=== PATIENT | male | born 1930 | race Caucasian/White ===

== ENCOUNTER 2017-11-11 12:55 | Observation (INO) ==
[2017-11-11] MEDS ORDERED: Sodium Chlor 0.9% Inj 500 ML IV.SIG SCH (14:00)
--- NOTE | 2017-11-11 14:00 | XR ---
EXAM DATE: 11/11/2017 1:56 PM EDT AGE/SEX: 87 years / Male INDICATIONS: Palpitations. CLINICAL DATA: This is the patient's initial encounter. Patient reports that signs and symptoms have been present for 1 day and indicates a pain score of 0/10. MEDICAL/SURGICAL HISTORY: None. None. COMPARISON: No prior exams available for comparison. FINDINGS: There is linear atelectasis or scarring at the bases with elevation of the right hemidiaphragm. Cardi omegaly. Dual-lead pacer from a right subclavian transvenous approach noted. Blunting of the right la teral costophrenic angle. CONCLUSION: Basilar scarring or atelectasis with mild elevation of the right hemidiaphragm. Small right effusion not excluded. Electronically signed by: Roman Mcgrath MD 11/11/2017 1:59 PM EDT
[2017-11-11 14:07] LABS: Baso # (Auto) 0.1 th/mm3 (0.0-0.2); Baso % (Auto) 1.1 % (0.0-2.0); Eos # (Auto) 0.3 th/mm3 (0.0-0.4); Eos % (Auto) 3.5 % (0.0-4.0); Hematocrit 41.3 % (39.0-51.0); Hemoglobin 13.9 gm/dL (13.0-17.0); Lymph # (Auto) 0.9 th/mm3 (1.0-4.8); Lymph % (Auto) 11.8 % (9.0-44.0); Mean Corpuscular HGB Conc 33.7 % (32.0-36.0); Mean Corpuscular Hemoglobin 30.8 pg (27.0-34.0); Mean Corpuscular Volume 91.3 fL (80.0-100.0); Mean Platelet Volume 8.1 fL (7.0-11.0); Mono # (Auto) 0.8 th/mm3 (0.0-0.9); Mono % (Auto) 11.1 % (0.0-8.0); Neut # (Auto) 5.4 th/mm3 (1.8-7.7); Neut % (Auto) 72.5 % (16.0-70.0); Platelet Count 214 th/mm3 (150-450); Red Blood Count 4.52 mil/mm3 (4.50-5.90); Red Cell Distribution Width 15.5 % (11.6-17.2); White Blood Count 7.5 th/mm3 (4.0-11.0)
[2017-11-11 14:17] LABS: Anion Gap 7 meq/L (5-15); Blood Urea Nitrogen 19 mg/dL (7-18); Calcium 8.5 mg/dL (8.5-10.1); Chloride 108 meq/L (98-107); Glomerular Filtration Rate 42 mL/min (>89); Glucose,Random 87 mg/dL (74-106); Sodium 143 meq/L (136-145)
[2017-11-11 14:27] LABS: INR 1.2 Ratio; Prothrombin Time 11.7 sec (9.8-11.6)
[2017-11-11 15:27] LABS: Bilirubin,Urine Negative (Negative); Clarity,Urine Hazy (Clear); Color,Urine Amber (Yellw/Straw); Glucose,Urine (UA) Negative (Negative); Hyaline Casts,Urine 1 /lpf (0-3); Leukocyte Esterase,Urine Negative (Negative); Mucus,Urine Few /lpf (Occasional); Nitrite,Urine Negative (Negative); Specific Gravity,Urine 1.013 (1.002-1.035)
--- NOTE | 2017-11-11 15:55 | CT ---
EXAM DATE: 11/11/2017 3:48 PM EDT AGE/SEX: 87 years / Male INDICATIONS: Dizziness today. CLINICAL DATA: This is the patient's initial encounter. Patient reports that signs and symptoms have been present for 1 day and indicates a pain score of 0/10. MEDICAL/SURGICAL HISTORY: None. None. RADIATION DOSE: 45.41 CTDI (mGy) COMPARISON: No prior exams available for comparison. TECHNIQUE: CT of the head without contrast. Using automated exposure control and adjustment of the mA and/or kV according to patient size, radiation dose was kept as low as reasonably achievable to ob tain optimal diagnostic quality images. DICOM format image data is available electronically for revi ew and comparison. FINDINGS: There is no evidence for intracranial hemorrhage, mass effect, mass lesions, edema, or extra-axial fl uid collections. The visualized bony structures appear intact. The ventricles are normal size for t he patient's age. There are no signs of acute infarction for technique. CONCLUSION: Unremarkable study. . Electronically signed by: Jan Johnson MD 11/11/2017 3:54 PM EDT
--- NOTE | 2017-11-11 17:50 | P.HPIM ---
History of Present Illness Primary Care Physician: Emiliano Gallego Chief Complaint: dyspnea on exertion History of Present Illness: This is an 87-year-old male with history of atrial fibrillation, status post pacemaker placement, diabetes mellitus, and COPD presenting with dyspnea on exertion. Per patient, he has been in his usual state of health until 2 days ago when he started having severe dyspnea, described as shortness of breath when he is walking associated with lightheadedness and dizziness. He denies any chest pain, palpitations, fever, chills, headache, syncope or cough. His publicity manager is Dr. Dhaliwal. Review of Systems Patient denies smoking, significant alcohol intake or use of any illicit drugs. [facility] - History History Provided By: Patient - Medical History Medical History: Medical History (Last Updated 11/11/17 @ 18:12 by Kavitha Cortez MD) Afib CKD (chronic kidney disease) COPD (chronic obstructive pulmonary disease) Diabetes Pacemaker - Surgical History Surgical History: Surgical History (Last Updated 11/11/17 @ 17:49 by Kavitha Cortez MD) S/P cholecystectomy S/P herniorrhaphy S/P lobectomy of lung S/P placement of cardiac pacemaker - Tobacco History Second Hand Smoke Exposure: No Tobacco Use In Past 30 Days: No Smoking Status: Never smoker - Alcohol History How Often Do You Have a Drink Containing Alcohol: 2 to 4 times a month - Substance Use History Substance History: Past History - Substance Use Type Alcohol Status: Sustained Remission Route Used: By Mouth Frequency: previous abuse Reason for Use: Feels Good - Travel History Recent Travel in the [place] Within the Last 8 Weeks: No Recent Travel Out of the Country Within the Last 8 Weeks: No - Immunization History Tetanus Immunization: Unsure Hx Influenza Vaccine This Season: No Medications and Allergies Active Medications: Active Medications Sodium Chloride (Ns Inj) 500 mls @ 0 mls/hr IV.SIG BOLUS NAWAF Allergies Allergy/AdvReac Type Severity Reaction Status Date / Time No Known Allergies Allergy Verified 11/11/17 13:16 Exam Vital signs: Vital Signs 11/11/17 12:58 11/11/17 13:01 11/11/17 14:51 Temperature 97.7 F Pulse Rate 50 L 49 L 49 L Respiratory Rate 24 18 18 Blood Pressure 106/68 138/89 138/83 Pulse Oximetry 100 99 98 11/11/17 15:58 Temperature Pulse Rate 57 L Respiratory Rate 18 Blood Pressure 113/63 Pulse Oximetry 100 Intake & Output 11/10/17 11/11/17 11/11/17 18:59 06:59 18:59 Weight 79.832 kg Narrative: Not in distress, well-nourished, looks stated age PERRL, pink conjunctiva without injection, anicteric Nose without bleeding, airway patent, oropharynx clear Supple neck, no masses or thyromegaly, trachea midline Bradycardic, regular rhythm, no murmurs. Decreased breath sounds especially in the left, no crackles or wheezing. Normal bowel sounds, soft, non-tender, nondistended, no guarding. Extremities without clubbing, cyanosis, or edema. No rash of generalized distribution. Skin is warm and dry. AAO x3, no cranial nerve deficits, moves all 4 extremities, no focal neurologic deficits Results - Labs CBC & Chem 7: 11/11/17 13:22 11/11/17 13:22 Labs: Short CBC 11/11/17 Range/Units 13:22 WBC 7.5 (4.0-11.0) th/mm3 Hgb 13.9 (13.0-17.0) gm/dL Hct 41.3 (39.0-51.0) % Plt Count 214 (150-450) th/mm3 BMP 11/11/17 13:22 Sodium 143 Potassium 4.0 Chloride 108 H Carbon Dioxide 28.0 BUN 19 H Creatinine 1.56 H Calcium 8.5 Cardiac Enzymes 11/11/17 Range/Units 13:22 Troponin I Less than 0.02 L (0.02-0.05) ng/mL Urine 11/11/17 Range/Units 14:29 Urine Color Rachel (Yellw/Straw) Urine Clarity Hazy H (Clear) Urine pH 7.0 (5.0-8.5) Ur Specific [place] 1.013 (1.002-1.035) Urine Protein Negative (Neg-Trace) mg/dL Urine Glucose (UA) Negative (Negative) mg/dL - Imaging Impressions Chest X-Ray 11/11/17 13:16 CONCLUSION: Basilar scarring or atelectasis with mild elevation of the right hemidiaphragm. Small right effusion not excluded. Head CT 11/11/17 13:16 CONCLUSION: Unremarkable study. . Caprini VTE Risk Assessment Caprini VTE Risk Assessment: Moderate/High Risk (score >= 2) Caprini Risk Assessment Model: Point Value = 1 Point Value = 2 Point Value = 3 Point Value = 5 Age 41-60 Minor surgery BMI > 25 kg/m2 Swollen legs Varicose veins or History of unexplained or recurrent spontaneous Oral contraceptives or hormone replacement Sepsis (< 1 month) Serious lung disease, including pneumonia (< 1 month) Abnormal pulmonary function Acute myocardial infarction Congestive heart failure (< 1 month) History of inflammatory bowel disease Medical patient at bed rest Age 61-74 Arthroscopic surgery Major open surgery (> 45 min) Laparoscopic surgery (> 45 min) Malignancy Confined to bed (> 72 hours) Immobilizing plaster cast Central venous access Age >= 75 History of VTE Family history of VTE Factor V Leiden Prothrombin [id number] Lupus anticoagulant Anticardiolipin antibodies Elevated serum homocysteine Heparin-induced thrombocytopenia Other congenital or acquired thrombophilia Stroke (< 1 month) Elective arthroplasty Hip, pelvis, or leg fracture Acute spinal cord injury (< 1 month) Prophylaxis Regimen: Total Risk Factor Score Risk Level Prophylaxis Regimen 0-1 Low Early ambulation 2 Moderate Order ONE of the following: *Sequential Compression Device (SCD) *Heparin 5000 units SQ BID 3-4 Higher Order ONE of the following medications: *Heparin 5000 units SQ TID *Enoxaparin/Lovenox 40 mg SQ daily (WT < 150 kg, CrCl > 30 mL/min) *Enoxaparin/Lovenox 30 mg SQ daily (WT < 150 kg, CrCl > 10-29 mL/min) *Enoxaparin/Lovenox 30 mg SQ BID (WT < 150 kg, CrCl > 30 mL/min) AND/OR *Sequential Compression Device (SCD) 5 or more Highest Order ONE of the following medications: *Heparin 5000 units SQ TID (Preferred with Epidurals) *Enoxaparin/Lovenox 40 mg SQ daily (WT < 150 kg, CrCl > 30 mL/min) *Enoxaparin/Lovenox 30 mg SQ daily (WT < 150 kg, CrCl > 10-29 mL/min) *Enoxaparin/Lovenox 30 mg SQ BID (WT < 150 kg, CrCl > 30 mL/min) AND *Sequential Compression Device (SCD) Assessment and Plan - Plan This is an 87-year-old male with history of atrial fibrillation, diabetes mellitus and COPD presenting with dyspnea on exertion associated with lightheadedness Left pleural effusion likely secondary to congestive heart failure - could be causing patient's dyspnea on exertion, chest x-ray shows atelectasis versus scarring, rule out small right pleural effusion. Start Lasix, monitor BMP, check echocardiogram, consult Dr. Dhaliwal, motor urine output. Initial trop is negative, check BMP. Serial troponin, start telemetry. Sinus bradycardia-EKG showed a ventricularly paced rhythm, could be pacemaker malfunction, consult cardiology as above. Avoid negative chronotropic agents. Chronic kidney disease-unknown stage, creatinine 1.56, monitor. Check BMP tomorrow. COPD-not in exacerbation, duo nebs as needed Home medications not yet reconciled, nursing to reconcile. DVT prophylaxis: Heparin Discussed with son, he will procure patient's medication list and bring to the hospital.
--- NOTE | 2017-11-11 18:06 | ED ---
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 Per patient he has had this for about 2 days now. Patient is never had a dizziness but he does state that he has the shortness of breath on occasion. He does have a history of COPD, atrial fibrillation and CHF. Per patient uses inhalers. Per patient he feels also that his pacemaker might be acting up on his left chest. Per patient is been going on for almost 2 weeks. Patient denies any chest pain however. He denies any abdominal pain. Nausea or vomiting. No urinary or bowel movement issues. No numbness, drooling, weakness. No fevers chills or sweats. No injuries or traumas. Per patient he follows with Dr. Dhaliwal for cardiology. Discomfort the patient feels is 1 out of 10 on the left side and feels more like a muscle ache. Related Data Home Medications Medication Instructions Recorded Confirmed aspirin [Lydia Chewable Aspirin] 81 mg 11/11/17 bisoprolol fumarate 2.5 mg PO DAILY 11/11/17 11/11/17 finasteride 5 mg PO DAILY 11/11/17 11/11/17 flecainide 150 mg PO Q12H 11/11/17 11/11/17 levothyroxine 75 mcg PO DAILY 11/11/17 11/11/17 linagliptin [Tradjenta] 5 mg PO DAILY 11/11/17 11/11/17 Allergies Allergy/AdvReac Type Severity Reaction Status Date / Time No Known Allergies Allergy Verified 11/11/17 13:16 Review of Systems ROS: all other systems reviewed are negative [facility] Medical History Medical History Afib (Acute) CKD (chronic kidney disease) (Acute) COPD (chronic obstructive pulmonary disease) (Acute) Diabetes (Acute) Pacemaker (Acute) Surgical History Surgical History S/P cholecystectomy (Acute) S/P herniorrhaphy (Acute) S/P lobectomy of lung (Acute) S/P placement of cardiac pacemaker (Acute) Social History Social History Substance History: No History of Abuse Second Hand Smoke Exposure: No Smoking Status: Former smoker How Often Do You Have a Drink Containing Alcohol: 4 or more times a week Recent Travel in [facility] within the Last 8 Weeks: No Recent Out of Country Travel within the Last 8 Weeks: No Substance Abuse Detail Alcohol: Substance Use Status: Sustained Remission Route Used Substance Abuse: By Mouth Substance Frequency: previous abuse Reason for Use: Feels Good Immunization History Tetanus Immunization: Unsure Hx Influenza Vaccine This Season: No Exam Narrative Exam Narrative: GENERAL: Well appearing. SKIN: Focused skin assessment warm/dry. HEAD: Atraumatic. Normocephalic. EYES: Pupils equal and round. No scleral icterus. No injection or drainage. ENT: No nasal bleeding or discharge. Mucous membranes pink and moist. Tongue is midline. No uvula deviation. NECK: Trachea midline. No JVD. CARDIOVASCULAR: Regular rate and rhythm. No murmur appreciated. RESPIRATORY: No accessory muscle use. Clear to auscultation. Breath sounds equal bilaterally. GASTROINTESTINAL: Abdomen soft, non-tender, nondistended. Hepatic and splenic margins not palpable. MUSCULOSKELETAL: No obvious deformities. No clubbing. No cyanosis. No edema. Full range of motion of the upper and lower extremities bilaterally. 2+ pulses bilaterally. NEUROLOGICAL: Awake and alert. No obvious cranial nerve deficits. Motor grossly within normal limits. Normal speech. PSYCHIATRIC: Appropriate mood and affect; insight and judgment normal. Course Initial Documented Vital Signs Temperature 97.7 F 11/11/17 12:58 Pulse Rate 50 L 11/11/17 12:58 Respiratory Rate 24 11/11/17 12:58 Blood Pressure 106/68 11/11/17 12:58 Pulse Oximetry 100 11/11/17 12:58 Last Documented Vital Signs Temperature 97.6 F 11/12/17 11:37 Pulse Rate 52 L 11/12/17 11:37 Respiratory Rate 14 11/12/17 11:37 Blood Pressure 121/70 11/12/17 11:37 Pulse Oximetry 99 11/12/17 11:37 Medical Decision Making ELFEGO Attestation ELFEGO supervised visit: Yes Attestation: Patient seen and examined by me Dr. Harper in addition to Janay Diane PAC. Patient does have exertional dyspnea and probable moderate CHF limitations but very little fluid retention. Son is very worried about patient has very limited mobility. Offered admission. Patient reluctant son very concerned. Ultimately patient agreeable. MDM Narrative Medical decision making narrative: 87-year-old male presents to the ED for evaluation of shortness of breath with exertion and dizziness. Patient was properly examined and was found to have signs and symptoms of unclear etiology. Labs and imaging were ordered. Labs and imaging show what appears to be pleural effusion on the right side. flux - [employer] rep came and evaluated the pacemaker. His pacemaker had an episode of A. fib 3 weeks ago but no shot was done. Patient has not had any episodes since. Patient and son are concerned because he is starting to get more short of breath and dizzy with exertion. His orthostats were slightly positive. Patient was given meclizine with minimal relief. Patient does feel very dizzy when standing. Not a safe discharge. Cannot rule out ACS or more significant CHF. Recommendation is for admission. My attending Dr. Harper evaluated the patient himself and agrees with plan. Patient will be admitted to Dr. Cortez who agrees to admission. Family and patient agree with this. Medical Screen Exam Complete: Yes Emergency Medical Condition: Yes Differential Diagnosis Differential Diagnosis: ACS versus CHF exacerbation versus dyspnea on exertion versus COPD exacerbation versus chest pain versus atypical chest pain Medical Records Medical records reviewed: Yes I reviewed the patient's medical records. Lab Data Lab results reviewed: Yes I reviewed the patient's lab results. Lab results narrative: Troponin negative. Coags within normal limits. Result diagrams: 11/12/17 01:38 11/12/17 01:38 Lab Results 11/11/17 11/11/17 11/11/17 Range/Units 13:22 13:22 13:22 WBC 7.5 (4.0-11.0) th/mm3 RBC 4.52 (4.50-5.90) mil/mm3 Hgb 13.9 (13.0-17.0) gm/dL Hct 41.3 (39.0-51.0) % MCV 91.3 (80.0-100.0) fL MCH 30.8 (27.0-34.0) pg MCHC 33.7 (32.0-36.0) % RDW 15.5 (11.6-17.2) % Plt Count 214 (150-450) th/mm3 MPV 8.1 (7.0-11.0) fL Neut % (Auto) 72.5 H (16.0-70.0) % Lymph % (Auto) 11.8 (9.0-44.0) % Branch % (Auto) 11.1 H (0.0-8.0) % Eos % (Auto) 3.5 (0.0-4.0) % Baso % (Auto) 1.1 (0.0-2.0) % Neut # (Auto) 5.4 (1.8-7.7) th/mm3 Lymph # (Auto) 0.9 L (1.0-4.8) th/mm3 Branch # (Auto) 0.8 (0.0-0.9) th/mm3 Eos # (Auto) 0.3 (0.0-0.4) th/mm3 Baso # (Auto) 0.1 (0.0-0.2) th/mm3 WBC Differential . Differential Comment Auto diff final PT 11.7 H (9.8-11.6) sec INR 1.2 Ratio Sodium 143 (136-145) meq/L Potassium 4.0 (3.5-5.1) meq/L Chloride 108 H (98-107) meq/L Carbon Dioxide 28.0 (21.0-32.0) meq/L Anion Gap 7 (5-15) meq/L BUN 19 H (7-18) mg/dL Creatinine 1.56 H (0.60-1.30) mg/dL Estimated GFR 42 L (>89) mL/min POC Glucose (68-110) mg/dl Random Glucose 87 (74-106) mg/dL Calcium 8.5 (8.5-10.1) mg/dL Total Creatine Kinase (39-308) U/L Troponin I Less than 0.02 L (0.02-0.05) ng/mL B-Natriuretic Peptide (0-100) pg/mL Urine Color (Yellw/Straw) Urine Clarity (Clear) Urine pH (5.0-8.5) Ur Specific [place] (1.002-1.035) Urine Protein (Neg-Trace) mg/dL Urine Glucose (UA) (Negative) mg/dL Urine Ketones (Negative) mg/dL Urine Occult Blood (Negative) Urine Nitrate (Negative) Urine Bilirubin (Negative) Urine Urobilinogen (Less than 2) mg/dL Ur Leukocyte Esterase (Negative) Hyaline Casts (0-3) /lpf Urine Mucus (Occasional) /lpf Micro UA Comment Ur Microscopic Review Urine Culture Comments 11/11/17 11/11/17 11/11/17 Range/Units 13:32 14:29 19:44 WBC (4.0-11.0) th/mm3 RBC (4.50-5.90) mil/mm3 Hgb (13.0-17.0) gm/dL Hct (39.0-51.0) % MCV (80.0-100.0) fL MCH (27.0-34.0) pg MCHC (32.0-36.0) % RDW (11.6-17.2) % Plt Count (150-450) th/mm3 MPV (7.0-11.0) fL Neut % (Auto) (16.0-70.0) % Lymph % (Auto) (9.0-44.0) % Branch % (Auto) (0.0-8.0) % Eos % (Auto) (0.0-4.0) % Baso % (Auto) (0.0-2.0) % Neut # (Auto) (1.8-7.7) th/mm3 Lymph # (Auto) (1.0-4.8) th/mm3 Branch # (Auto) (0.0-0.9) th/mm3 Eos # (Auto) (0.0-0.4) th/mm3 Baso # (Auto) (0.0-0.2) th/mm3 WBC Differential Differential Comment PT (9.8-11.6) sec INR Ratio Sodium (136-145) meq/L Potassium (3.5-5.1) meq/L Chloride (98-107) meq/L Carbon Dioxide (21.0-32.0) meq/L Anion Gap (5-15) meq/L BUN (7-18) mg/dL Creatinine (0.60-1.30) mg/dL Estimated GFR (>89) mL/min POC Glucose (68-110) mg/dl Random Glucose (74-106) mg/dL Calcium (8.5-10.1) mg/dL Total Creatine Kinase 39 (39-308) U/L Troponin I Less than 0.02 L (0.02-0.05) ng/mL B-Natriuretic Peptide 495 H (0-100) pg/mL Urine Color Rachel (Yellw/Straw) Urine Clarity Hazy H (Clear) Urine pH 7.0 (5.0-8.5) Ur Specific [place] 1.013 (1.002-1.035) Urine Protein Negative (Neg-Trace) mg/dL Urine Glucose (UA) Negative (Negative) mg/dL Urine Ketones Negative (Negative) mg/dL Urine Occult Blood Negative (Negative) Urine Nitrate Negative (Negative) Urine Bilirubin Negative (Negative) Urine Urobilinogen Less than 2 (Less than 2) mg/dL Ur Leukocyte Esterase Negative (Negative) Hyaline Casts 1 (0-3) /lpf Urine Mucus Few H (Occasional) /lpf Micro UA Comment Culture not ind Ur Microscopic Review Not Reportable Urine Culture Comments Culture not ind 11/11/17 11/12/17 11/12/17 Range/Units 21:10 01:38 01:38 WBC 6.2 (4.0-11.0) th/mm3 RBC 4.18 L (4.50-5.90) mil/mm3 Hgb 12.8 L (13.0-17.0) gm/dL Hct 37.7 L (39.0-51.0) % MCV 90.1 (80.0-100.0) fL MCH 30.7 (27.0-34.0) pg MCHC 34.0 (32.0-36.0) % RDW 15.5 (11.6-17.2) % Plt Count 197 (150-450) th/mm3 MPV 7.7 (7.0-11.0) fL Neut % (Auto) 66.7 (16.0-70.0) % Lymph % (Auto) 13.0 (9.0-44.0) % Branch % (Auto) 13.0 H (0.0-8.0) % Eos % (Auto) 5.3 H (0.0-4.0) % Baso % (Auto) 2.0 (0.0-2.0) % Neut # (Auto) 4.2 (1.8-7.7) th/mm3 Lymph # (Auto) 0.8 L (1.0-4.8) th/mm3 Branch # (Auto) 0.8 (0.0-0.9) th/mm3 Eos # (Auto) 0.3 (0.0-0.4) th/mm3 Baso # (Auto) 0.1 (0.0-0.2) th/mm3 WBC Differential . Differential Comment Auto diff final PT (9.8-11.6) sec INR Ratio Sodium 146 H (136-145) meq/L Potassium 3.4 L (3.5-5.1) meq/L Chloride 107 (98-107) meq/L Carbon Dioxide 32.4 H (21.0-32.0) meq/L Anion Gap 7 (5-15) meq/L BUN 19 H (7-18) mg/dL Creatinine 1.79 H (0.60-1.30) mg/dL Estimated GFR 36 L (>89) mL/min POC Glucose 149 H (68-110) mg/dl Random Glucose 98 (74-106) mg/dL Calcium 7.8 L (8.5-10.1) mg/dL Total Creatine Kinase 29 L (39-308) U/L Troponin I Less than 0.02 L (0.02-0.05) ng/mL B-Natriuretic Peptide (0-100) pg/mL Urine Color (Yellw/Straw) Urine Clarity (Clear) Urine pH (5.0-8.5) Ur Specific [place] (1.002-1.035) Urine Protein (Neg-Trace) mg/dL Urine Glucose (UA) (Negative) mg/dL Urine Ketones (Negative) mg/dL Urine Occult Blood (Negative) Urine Nitrate (Negative) Urine Bilirubin (Negative) Urine Urobilinogen (Less than 2) mg/dL Ur Leukocyte Esterase (Negative) Hyaline Casts (0-3) /lpf Urine Mucus (Occasional) /lpf Micro UA Comment Ur Microscopic Review Urine Culture Comments 11/12/17 11/12/17 Range/Units 08:22 11:43 WBC (4.0-11.0) th/mm3 RBC (4.50-5.90) mil/mm3 Hgb (13.0-17.0) gm/dL Hct (39.0-51.0) % MCV (80.0-100.0) fL MCH (27.0-34.0) pg MCHC (32.0-36.0) % RDW (11.6-17.2) % Plt Count (150-450) th/mm3 MPV (7.0-11.0) fL Neut % (Auto) (16.0-70.0) % Lymph % (Auto) (9.0-44.0) % Branch % (Auto) (0.0-8.0) % Eos % (Auto) (0.0-4.0) % Baso % (Auto) (0.0-2.0) % Neut # (Auto) (1.8-7.7) th/mm3 Lymph # (Auto) (1.0-4.8) th/mm3 Branch # (Auto) (0.0-0.9) th/mm3 Eos # (Auto) (0.0-0.4) th/mm3 Baso # (Auto) (0.0-0.2) th/mm3 WBC Differential Differential Comment PT (9.8-11.6) sec INR Ratio Sodium (136-145) meq/L Potassium (3.5-5.1) meq/L Chloride (98-107) meq/L Carbon Dioxide (21.0-32.0) meq/L Anion Gap (5-15) meq/L BUN (7-18) mg/dL Creatinine (0.60-1.30) mg/dL Estimated GFR (>89) mL/min POC Glucose 122 H 136 H (68-110) mg/dl Random Glucose (74-106) mg/dL Calcium (8.5-10.1) mg/dL Total Creatine Kinase (39-308) U/L Troponin I (0.02-0.05) ng/mL B-Natriuretic Peptide (0-100) pg/mL Urine Color (Yellw/Straw) Urine Clarity (Clear) Urine pH (5.0-8.5) Ur Specific [place] (1.002-1.035) Urine Protein (Neg-Trace) mg/dL Urine Glucose (UA) (Negative) mg/dL Urine Ketones (Negative) mg/dL Urine Occult Blood (Negative) Urine Nitrate (Negative) Urine Bilirubin (Negative) Urine Urobilinogen (Less than 2) mg/dL Ur Leukocyte Esterase (Negative) Hyaline Casts (0-3) /lpf Urine Mucus (Occasional) /lpf Micro UA Comment Ur Microscopic Review Urine Culture Comments Imaging Data Attestation: I personally reviewed and interpreted this imaging study as follows : Radiologist's impression: Chest X-Ray 11/11/17 13:16 CONCLUSION: Basilar scarring or atelectasis with mild elevation of the right hemidiaphragm. Small right effusion not excluded. Head CT 11/11/17 13:16 CONCLUSION: Unremarkable study. . ECG Data Attestation: I personally reviewed and interpreted this ECG as follows: Interpretation: EKG shows bradycardia but paced. No sign of ST elevations. No signs of ischemia read by me and attending. Discharge Plan Discharge Disposition Patient Disposition: 30 Still Patient Discharge Condition Condition: Good Discharge Order Discharge Orders: Discharge Order (Routine); Ordered 11/12/17 Ordered By: Kavitha Cortez Discharge Details Diagnosis: CHF (congestive heart failure), Exertional dyspnea Physicians Team ED Provider: Blake Harper ED Midlevel Provider: Gonzalo Diane Attending Provider: Kavitha Cortez Other Providers: Lj Shell Status ED Status: Left Department Discharge Information Discharge Date/Time: 11/11/17 20:06
[2017-11-11] MEDS ORDERED: Acetaminophen 325 MG Tablet PO PRN (18:13)
[2017-11-11] MEDS ORDERED: Dextrose 50% in Water 50 ML Vial IV.PUSH PRN (18:27)
[2017-11-11] MEDS: Heparin - SQ 10,000 UNITS/ML Vial SQ SCH (19:42)
[2017-11-11 20:25] LABS: Creatine Kinase 39 U/L (39-308)
[2017-11-11] MEDS: Insulin NovoLOG Aspart Correctional Sugar Inj SQ SCH (21:39)
[2017-11-12 01:52] LABS: Baso # (Auto) 0.1 th/mm3 (0.0-0.2); Eos # (Auto) 0.3 th/mm3 (0.0-0.4); Eos % (Auto) 5.3 % (0.0-4.0); Hematocrit 37.7 % (39.0-51.0); Hemoglobin 12.8 gm/dL (13.0-17.0); Lymph # (Auto) 0.8 th/mm3 (1.0-4.8); Mean Corpuscular Hemoglobin 30.7 pg (27.0-34.0); Mean Corpuscular Volume 90.1 fL (80.0-100.0); Mean Platelet Volume 7.7 fL (7.0-11.0); Mono # (Auto) 0.8 th/mm3 (0.0-0.9); Neut # (Auto) 4.2 th/mm3 (1.8-7.7); Neut % (Auto) 66.7 % (16.0-70.0); Platelet Count 197 th/mm3 (150-450); Red Blood Count 4.18 mil/mm3 (4.50-5.90); Red Cell Distribution Width 15.5 % (11.6-17.2); White Blood Count 6.2 th/mm3 (4.0-11.0)
[2017-11-12 02:11] LABS: Anion Gap 7 meq/L (5-15); Blood Urea Nitrogen 19 mg/dL (7-18); Calcium 7.8 mg/dL (8.5-10.1); Carbon Dioxide 32.4 meq/L (21.0-32.0); Chloride 107 meq/L (98-107); Glomerular Filtration Rate 36 mL/min (>89); Glucose,Random 98 mg/dL (74-106); Potassium 3.4 meq/L (3.5-5.1); Sodium 146 meq/L (136-145)
[2017-11-12 02:16] LABS: Creatine Kinase 29 U/L (39-308)
[2017-11-12] MEDS: Heparin - SQ 10,000 UNITS/ML Vial SQ SCH (06:39)
[2017-11-12] MEDS: Insulin NovoLOG Aspart Correctional Sugar Inj SQ SCH ×2 (08:34→13:08)
[2017-11-12 08:46] VITALS: RESP 14; TEMP 97.6
[2017-11-12] MEDS ORDERED: Levothyroxine 75 MCG Tablet PO SCH (09:00)
[2017-11-12] MEDS ORDERED: Finasteride 5 MG Tablet PO SCH (09:00)
[2017-11-12] MEDS ORDERED: Flecainide 100 MG Tablet PO SCH (09:00)
--- NOTE | 2017-11-12 09:24 | MB ---
cc: Lj Shell MD, Humayun A MD DATE: 11/12/2017 REFERRING PHYSICIAN: Dr. Kavitha Cortez. REASON FOR CONSULTATION: Shortness of breath and lightheadedness. HISTORY OF PRESENT ILLNESS: Mr. Álvarez is an 87-year-old white gentleman, well known patient of Dr. Dhaliwal's with history of paroxysmal atrial fibrillation, COPD, and hypertension, who is status post permanent pacemaker implant about a year ago. He said he was doing well up until about 2 days ago when he began having some lightheadedness and unsteadiness on his feet. He felt he might fall, but did not fall and has had no loss of consciousness. He says it was more of an unsteadiness that it was a feeling of going to pass out. He says his shortness of breath has been chronic and has really not worsened over the past few days and feels it is all secondary to his underlying COPD. He has been taking his medication as directed. He does not currently smoke. 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 He denies history of myocardial infarction, heart failure, stroke, TIA, thyroid or liver disease. He has history of lung cancer and is status post lobectomy. He did have a cardiac pacemaker placed about a year ago on the left side. He says he developed a pacemaker site infection and that required removal and is now on the right side. PAST SURGICAL HISTORY: Includes cholecystectomy, herniorrhaphy, lobectomy of the lung, permanent pacemaker implant. ALLERGIES: NONE KNOWN. MEDICATIONS: 1. Lasix 20 mg IV every 12 hours. 2. Heparin 5000 units subcutaneous every 12 hours. 3. Insulin sliding scale. 4. Albuterol. 5. DuoNebs every 4 hours. At home, he was takin. Tamsulosin 0.4 mg daily. 2. Tradjenta 5 mg p.o. daily. 3. Levothyroxine 75 mcg daily. 4. Hydrochlorothiazide 12.5 mg daily. 5. Flecainide 150 mg every 12 hours. 6. Finasteride 5 mg daily. 7. Bisoprolol fumarate 2.5 mg daily 8. Aspirin 81 mg daily. SOCIAL HISTORY: The patient was a cigarette smoker, quit about 5 or 6 years ago. He denies any significant alcohol intake or any illicit drug use. FAMILY HISTORY: Noncontributory. REVIEW OF SYSTEMS: Denies lower extremity edema or claudication. Denies any orthopnea or PND type symptoms. Denies any exertional or resting chest discomfort. Denies any bleeding or clotting disorders. Except for that mentioned in the HPI, his complete 12-point review of systems is otherwise negative. PHYSICAL EXAMINATION: GENERAL: Reveals an elderly white male lying flat in bed, comfortable, in no distress. VITAL SIGNS: Blood pressure is 126/74 mmHg, heart rate is 53 and regular, respiratory rate 17, temperature 98.2, oxygen saturation is 100% on room air. Looking back at his vitals from yesterday, he had some orthostatic vital signs taken and had some mild orthostatic changes. The worst I see recorded, although it is not documented in the EMR, I spoke with one of the nurses here in the unit, who was checking his blood pressure and said he had about 20 mm orthostatic change from supine to standing. No symptoms, but blood pressure standing was around 100. HEENT: Head is normocephalic and atraumatic. Pupils equal, round, reactive to light. Sclerae are anicteric. Extraocular movements intact. NECK: Supple. There is no adenopathy. There is no jugular venous distention at 30 degrees. Carotid upstrokes are normal. No bruits. Thyroid exam is normal. LUNGS: Decreased breath sounds bilaterally and are clear throughout. HEART: PMI is not displaced. S1, S2 are normal. There are no murmurs, gallops, clicks or rubs. Pacemaker site seen in the right subclavian area and is healed well. ABDOMEN: Benign. EXTREMITIES: No cyanosis, clubbing or edema. Perfusion is adequate. The upper and lower extremities. There are no femoral bruits. NEUROLOGIC: Nonfocal. DIAGNOSTIC IMAGING: EKG on 11/11/2017 on admission at 19:47 shows an electronic ventricular pacing capture at rate 50. EKG from this morning at 05:20 shows a sinus rhythm with first degree AV block and IVCD. Chest x-ray from yesterday at 13:16 shows basilar scarring or atelectasis with mild elevation of the right hemidiaphragm, small right effusion not excluded. LABORATORY DATA: CBC, white count 7.5, hemoglobin 13.9, platelet count 214,000. Coags are normal. Chemistries, sodium 143, potassium 4.0, BUN 19, creatinine 1.56, calcium 8.5. Troponin I has been less than 0.02 x3 sets since admission. BNP on admission yesterday was 495. IMPRESSION: 1. Episodes of lightheadedness while standing and walking, most likely related to orthostatic hypotension. 2. Paroxysmal atrial fibrillation, currently in sinus rhythm. 3. Status post permanent dual-chamber pacemaker implant, functioning normally on interrogation yesterday. 4. History of diabetes mellitus type 2. 5. Hypothyroidism on replacement. 6. Chronic obstructive pulmonary disease and history of lung cancer. RECOMMENDATIONS: The patient is stable from cardiovascular standpoint at this time. We will continue to follow his orthostatic blood pressures, but in the meantime, I have restarted his Bystolic, aspirin, and flecainide and we will leave him off tamsulosin and hydrochlorothiazide. I have discontinued his intravenous Lasix since I do not feel he is having any congestive heart failure decompensation at this point. I think if he is ambulatory and feeling better later this morning, he can probably be discharged to home with followup with Dr. Dhaliwal next week. I discussed the case in detail with the nursing staff and plans with the patient. Thank you for allowing us to participate in the care of this patient. MD MANOLO Carrasco/amy , 07:23 AM , 07:38 AM
--- NOTE | 2017-11-12 09:30 | P.PNIM ---
Subjective Interval history: Follow-up for shortness of breath, dizziness Has not walked yet, no dizziness or lightheadedness. Denies any chest pain or shortness of breath. Presently at rest. Physical Exam Vital signs: Vital Signs 11/11/17 12:58 11/11/17 13:01 11/11/17 14:51 Temperature 97.7 F Pulse Rate 50 L 49 L 49 L Respiratory Rate 24 18 18 Blood Pressure 106/68 138/89 138/83 Pulse Oximetry 100 99 98 11/11/17 15:58 11/11/17 19:01 11/11/17 20:23 Temperature 98.4 F Pulse Rate 57 L 54 L 64 Respiratory Rate 18 16 17 Blood Pressure 113/63 134/76 109/65 Pulse Oximetry 100 98 11/11/17 21:18 11/11/17 21:20 11/11/17 21:21 Temperature Pulse Rate 55 L 53 L 54 L Respiratory Rate 17 Blood Pressure 150/75 H 126/74 101/57 L Pulse Oximetry 11/11/17 23:45 11/12/17 03:35 11/12/17 08:42 Temperature 98.0 F 98.2 F 97.6 F Pulse Rate 50 L 50 L 50 L Respiratory Rate 17 16 14 Blood Pressure 109/61 104/60 106/73 Pulse Oximetry 96 96 98 Intake & Output 11/11/17 11/12/17 11/12/17 18:59 06:59 18:59 Intake Total 0 / 0 Output Total 1325 / 1325 Balance -1325 / -1325 0 / 0 Weight 79.832 kg 79 kg Intake: Oral 0 / 0 Output: Urine 1325 / 1325 Other: # Voids 1 Narrative: Not in distress, well-nourished, looks stated age PERRL, pink conjunctiva without injection, anicteric Nose without bleeding, airway patent, oropharynx clear Supple neck, no masses or thyromegaly, trachea midline Bradycardic, regular rhythm, no murmurs. Decreased breath sounds especially in the left, crackles left base. Normal bowel sounds, soft, non-tender, nondistended, no guarding. Extremities without clubbing, cyanosis, or edema. No rash of generalized distribution. Skin is warm and dry. AAO x3, no cranial nerve deficits, moves all 4 extremities, no focal neurologic deficits Results - Labs CBC & Chem 7: 09/02/18 01:38 11/12/17 01:38 Laboratory Results - last 24 hr 11/11/17 11/11/17 11/11/17 13:22 13:22 13:22 WBC 7.5 RBC 4.52 Hgb 13.9 Hct 41.3 MCV 91.3 MCH 30.8 MCHC 33.7 RDW 15.5 Plt Count 214 MPV 8.1 Neut % (Auto) 72.5 H Lymph % (Auto) 11.8 [place] % (Auto) 11.1 H Eos % (Auto) 3.5 Baso % (Auto) 1.1 Neut # (Auto) 5.4 Lymph # (Auto) 0.[address] [place] # (Auto) 0.8 Eos # (Auto) 0.3 Baso # (Auto) 0.1 WBC Differential . Differential Comment Auto diff final PT 11.7 H INR 1.2 Sodium 143 Potassium 4.0 Chloride 108 H Carbon Dioxide 28.0 Anion Gap 7 BUN 19 H Creatinine 1.56 H Estimated GFR 42 L POC Glucose Random Glucose 87 Calcium 8.5 Total Creatine Kinase Troponin I Less than 0.02 L B-Natriuretic Peptide Urine Color Urine Clarity Urine pH Ur Specific [place] Urine Protein Urine Glucose (UA) Urine Ketones Urine Occult Blood Urine Nitrate Urine Bilirubin Urine Urobilinogen Ur Leukocyte Esterase Hyaline Casts Urine Mucus Micro UA Comment Ur Microscopic Review Urine Culture Comments 11/11/17 11/11/17 11/11/17 13:32 14:29 19:44 WBC RBC Hgb Hct MCV MCH MCHC RDW Plt Count MPV Neut % (Auto) Lymph % (Auto) [place] % (Auto) Eos % (Auto) Baso % (Auto) Neut # (Auto) Lymph # (Auto) [place] # (Auto) Eos # (Auto) Baso # (Auto) WBC Differential Differential Comment PT INR Sodium Potassium Chloride Carbon Dioxide Anion Gap BUN Creatinine Estimated GFR POC Glucose Random Glucose Calcium Total Creatine Kinase 39 Troponin I Less than 0.02 L B-Natriuretic Peptide 495 H Urine Color Rachel Urine Clarity Hazy H Urine pH 7.0 Ur Specific [place] 1.013 Urine Protein Negative Urine Glucose (UA) Negative Urine Ketones Negative Urine Occult Blood Negative Urine Nitrate Negative Urine Bilirubin Negative Urine Urobilinogen Less than 2 Ur Leukocyte Esterase Negative Hyaline Casts 1 Urine Mucus Few H Micro UA Comment Culture not ind Ur Microscopic Review Not Reportable Urine Culture Comments Culture not ind 11/11/17 11/12/17 11/12/17 21:10 01:38 01:38 WBC 6.2 RBC 4.18 L Hgb 12.8 L Hct 37.7 L MCV 90.1 MCH 30.7 MCHC 34.0 RDW 15.5 Plt Count 197 MPV 7.7 Neut % (Auto) 66.7 Lymph % (Auto) 13.0 [place] % (Auto) 13.0 H Eos % (Auto) 5.3 H Baso % (Auto) 2.0 Neut # (Auto) 4.2 Lymph # (Auto) 0.[address] [place] # (Auto) 0.8 Eos # (Auto) 0.3 Baso # (Auto) 0.1 WBC Differential . Differential Comment Auto diff final PT INR Sodium 146 H Potassium 3.4 L Chloride 107 Carbon Dioxide 32.4 H Anion Gap 7 BUN 19 H Creatinine 1.79 H Estimated GFR 36 L POC Glucose 149 H Random Glucose 98 Calcium 7.8 L Total Creatine Kinase 29 L Troponin I Less than 0.02 L B-Natriuretic Peptide Urine Color Urine Clarity Urine pH Ur Specific [place] Urine Protein Urine Glucose (UA) Urine Ketones Urine Occult Blood Urine Nitrate Urine Bilirubin Urine Urobilinogen Ur Leukocyte Esterase Hyaline Casts Urine Mucus Micro UA Comment Ur Microscopic Review Urine Culture Comments 11/12/17 08:22 WBC RBC Hgb Hct MCV MCH MCHC RDW Plt Count MPV Neut % (Auto) Lymph % (Auto) [place] % (Auto) Eos % (Auto) Baso % (Auto) Neut # (Auto) Lymph # (Auto) [place] # (Auto) Eos # (Auto) Baso # (Auto) WBC Differential Differential Comment PT INR Sodium Potassium Chloride Carbon Dioxide Anion Gap BUN Creatinine Estimated GFR POC Glucose 122 H Random Glucose Calcium Total Creatine Kinase Troponin I B-Natriuretic Peptide Urine Color Urine Clarity Urine pH Ur Specific [place] Urine Protein Urine Glucose (UA) Urine Ketones Urine Occult Blood Urine Nitrate Urine Bilirubin Urine Urobilinogen Ur Leukocyte Esterase Hyaline Casts Urine Mucus Micro UA Comment Ur Microscopic Review Urine Culture Comments - Imaging Impressions Chest X-Ray 11/11/17 13:16 CONCLUSION: Basilar scarring or atelectasis with mild elevation of the right hemidiaphragm. Small right effusion not excluded. Head CT 11/11/17 13:16 CONCLUSION: Unremarkable study. . Assessment and Plan - Plan This is an 87-year-old male with history of atrial fibrillation, diabetes mellitus and COPD presenting with dyspnea on exertion associated with lightheadedness Left pleural effusion likely secondary to congestive heart failure - could be causing patient's dyspnea on exertion, BNP 495, chest x-ray shows atelectasis versus scarring, rule out small right pleural effusion. -1325 cc/24hr. troponins negative. Continue telemetry. Sinus bradycardia-EKG showed a ventricularly paced rhythm, repeat EKG showed first-degree AV block, sinus rhythm, IVCD. Per cardiology, restart Bystolic, flecainide. Orthostatic blood pressure-hold off Flomax and hydrochlorothiazide. Lasix stopped. Check orthostatic blood pressure, walk with physical therapy and check if patient gets dizzy. If he does, will need a bolus of normal saline. Chronic kidney disease-unknown stage, creatinine 1.56, monitor. Creatinine a little bit higher. Stop Lasix. Recheck BMP tomorrow, start IVF if still with lightheadedness or orthostatic blood pressure positive. COPD-not in exacerbation, duo nebs as needed DVT prophylaxis: Heparin
[2017-11-12 11:38] VITALS: BP 121/70; PULSE 52; O2SAT 99
--- NOTE | 2017-11-12 15:42 | P.EN ---
Addendum: Recommendations for anticoagulation and stroke prophylaxis for atrial fib discussed in detail with the patient. Patient declined due to concerns about bleeding and bruising with anticoagulation and wants to continue ASA. Understands increased risk of CVA. He says he has discussed this with Dr. Dhaliwal in the past as well.
--- NOTE | 2017-11-12 16:25 | ECG ---
Date Performed: 11/11/2017 Time Performed: 19:47:19 PTAGE: 87 years EKG: ELECTRONIC VENTRICULAR PACEMAKER ABNORMAL RHYTHM ECG Since PREVIOUS TRACING , no significant change noted PREVIOUS TRACIN11/11/2017 13.31 DOCTOR: Aidan Vega Interpretating Date/Time 11/12/2017 16:23:54
--- NOTE | 2017-11-12 16:25 | ECG ---
Date Performed: 11/11/2017 Time Performed: 13:31:31 PTAGE: 87 years EKG: ELECTRONIC VENTRICULAR PACEMAKER ABNORMAL RHYTHM ECG NO PREVIOUS TRACING DOCTOR: Aidan Vega Interpretating Date/Time 11/12/2017 16:23:30
--- NOTE | 2017-11-12 16:26 | ECG ---
Date Performed: 11/12/2017 Time Performed: 05:20:28 PTAGE: 87 years EKG: SINUS BRADYCARDIA WITH FIRST DEGREE AV BLOCK INTRAVENTRICULAR CONDUCTION DELAY NONSPECIFIC T-WAVE CHANGES Compared to previous tracing, previous rhythm was paced rhythm with rate of 50, this r hythm is Sinus rhythm with first degree AV block. No pacemaker activity is seen on this tracing, but the sinus rhythm on t his tracing is slightly faster than that of the pacer setting of 50. Clinical correlation recommended . ABNORMAL ECG PREVIOUS TRACING : 11/11/2017 19.47 DOCTOR: Aidan Vega Interpretating Date/Time 11/12/2017 16:25:38
== END 2017-11-12 14:58 | disposition home or self-care (01) ==
LOC: NEDA 12:55 → NEPC 12:55 → NEPHCDU 20:06
PROVIDERS: ADMIT Hospitalist; ATTEND Hospitalist